=== PATIENT | male | born 1945 | race Caucasian/White ===

== ENCOUNTER 2018-05-04 08:49 | Day surgery (SDC) | payer OTHER, MEDICARE ==
--- NOTE | 2018-05-04 07:36 | OP ---
Operative Note - Note: Operative Date: 05/04/18 Pre-Operative Diagnosis: right patella fracture Operation: right patella ORIF Implants: arthrex 4mm cannulated screws x2 Post-Operative Diagnosis: Same as Pre-op Surgeon: Gen Elizabeth Anesthesia: Fractional Operative Report Dictated: Yes
[2018-05-04] MEDS ORDERED: MIDAZOLAM HCL 2 MG/2 ML SINGLE DOSE VIAL ONE ×2 (09:55→10:41)
[2018-05-04] MEDS ORDERED: ROPIVACAINE HCL 0.5% 30ML VIAL ONE (09:55)
[2018-05-04] MEDS ORDERED: DEXAMETHASONE SOD PHOSPHATE/PF 10 MG/ML SDV ONE (09:55)
[2018-05-04] MEDS ORDERED: PROPOFOL 20 ML ONE ×3 (10:40→11:26)
[2018-05-04] MEDS ORDERED: KETOROLAC TROMETHAMINE 30 MG/1 ML VIAL ONE (10:41)
[2018-05-04] MEDS ORDERED: DEXAMETHASONE SOD PHOSPHATE 4 MG/1 ML VIAL ONE (10:41)
[2018-05-04] MEDS ORDERED: ONDANSETRON 4 MG/2 ML VIAL ONE (10:41)
[2018-05-04] MEDS ORDERED: ceFAZolin SODIUM 1 GM VIAL ONE (10:41)
[2018-05-04] MEDS ORDERED: BENZOIN/ALOE VERA/STORAX/TOLU 58 ML BOTTLE ONE (12:31)
--- NOTE | 2018-05-04 12:55 | OP ---
DATE OF OPERATION: 05/04/2018 PREOPERATIVE DIAGNOSIS: Right patella fracture. POSTOPERATIVE DIAGNOSIS: Right patella fracture. PROCEDURE: Right patella open reduction and internal fixation. SURGEON: Gen Elizabeth MD [employer]: RAPHAEL Lerma, whose skillful assistance was necessary for the safe and timely performance of this procedure. Mr. Barros was able to provide limb positioning, aid in fracture reduction, aid in retraction as well as the insertion of orthopedic procedural hardware. ANESTHESIA: Regional plus LMA. POSTOPERATIVE CONDITION: Stable. COMPLICATIONS: None. IMPLANTS: Arthrex cannulated screws x2. TOURNIQUET TIME: 1 hour and 5 minutes. INDICATION: This is a pleasant 73-year-old gentleman who is quite active who suffered a fall and was found to have a patella fracture which was displaced. Given the nature of articular displacement, operative repair was recommended. We discussed the option of nonoperative repair which may involve the risk of malunion and posttraumatic arthrosis. I reviewed operative risks in detail including bleeding, infection, neurovascular injury, need for further surgery, postoperative pain and stiffness, nonunion, malunion, hardware failure or cutout. We discussed medical risks such as heart attack, stroke, DVT, PE and . I addressed all the patient's questions and concerns as well as his 's. They voiced understanding and elected to proceed. PROCEDURE: The patient was brought to the operating room where LMA anesthesia was administered. He had been given a preoperative block in the holding area. The right lower extremity was then prepped and draped in the usual sterile fashion. A preoperative dose of antibiotics given and the usual timeout procedure was performed. Incision was now planned out over the palpable fracture site in the midline over the patella. After exsanguinating the limb and inflating the tourniquet, it was made through the skin and subcutaneous tissue. Blunt spreading was used to expose the periosteum which was then split in line with the limb. This was reflected medially and laterally to expose the fracture site. The fracture site was now debrided of any soft callus. It was then irrigated. Fracture reduction clamp was now applied to reduce the fracture. Radiography was used to confirm fracture reduction. Two K-wires from the Arthrex set were now passed from the proximal to distal direction across the fracture site. Guidewire placement was confirmed fluoroscopically in 2 planes. The superior cortex of the patella was then overdrilled. Two screws were then inserted, cannulated and partially threaded across the fracture site. Screw placement was verified visually and fluoroscopically and both fracture reduction and hardware placement were satisfactory. The guidewire was now removed. A FiberTape suture was now threaded in a figure-of-8 pattern through the 2 screws. It was then tied to create a tension band construct. Once again, fluoroscopy was used to confirm fracture reduction and hardware placement. Both were satisfactory. The patient's wound was now copiously irrigated. The deep tissue was approximated using 0 Vicryl. The subcutaneous tissue was approximated using 2-0 Vicryl. The skin was closed using 3-0 nylon. Sterile dressings were placed. Patient was placed into a long-leg cylinder cast. He was extubated and transferred to the recovery room in stable condition. Alex [id number]
[2018-05-04] MEDS ORDERED: oxyCODONE HCL 5 MG TABLET PO PRN ×2 (13:04)
[2018-05-04] MEDS ORDERED: ONDANSETRON 4 MG/2 ML VIAL IVPUSH PRN (13:04)
[2018-05-04] MEDS ORDERED: LACTATED RINGERS SOLUTION 1,000 ML IV SCH (13:15)
[2018-05-04 15:06] VITALS: TEMP 98.2
[2018-05-04 15:11] VITALS: BP 134/76; PULSE 66
== END 2018-05-04 14:50 | disposition home or self-care (01) ==
LOC: FASU 08:49
PROVIDERS: ATTEND Orthopaedic Surgery Sports Medicine
PROC: 0QSD04Z Reposition Right Patella with Internal Fixation Device, Open Approach (ICD-10-PCS; 2018-05-04)
PROC: 0QBD0ZZ Excision of Right Patella, Open Approach (ICD-10-PCS; principal; 2018-05-04 11:20)
DX: S82.031A Displaced transverse fracture of right patella, initial encounter for closed fracture (principal)
CPT/HCPCS: 73560-TC-RT-FY; 94760